=== PATIENT | female | born 1975 | race Caucasian/White ===

== ENCOUNTER 2017-06-01 12:00 | Emergency (ER) | payer OTHER ==
[~2017-06-01] VITALS: Ht 170.2 cm; Wt 65.0 kg
[2017-06-01 12:06] VITALS: BP 152/90; PULSE 69; RESP 16; TEMP 99; O2SAT 99
[2017-06-01] MEDS ORDERED: LIDOCAINE HCL 1% 30 ML VIAL INFIL ONE (12:30)
--- NOTE | 2017-06-01 12:39 | PD ---
HPI Chief Complaint: Laceration/Skin Injury Time Seen by Provider: 12:17 Travel History International Travel<30 days: No Contact w/Intl Traveler<30days: No Traveled to known affect area: No History of Present Illness HPI 42-year-old female presents to the ED for evaluation of laceration of the left great toe. Sustained just prior to arrival. Patient states that she was attempting to remove a picture from a frame when the glass fell onto her toe. She denies numbness, tingling, weakness, limitations to range of motion of the digit. She has been ambulatory since the accident. She treated at home by washing the wound and applying butterfly bandages. States last tetanus immunization was one year ago. [facility] Past Medical History Medical History: Denies Significant Hx Tetanus Vaccination: < 5 Years Influenza Vaccination: No ?: Not LMP: approx 9 months ago, had an ablasion Past Surgical History Surgical History: No Previous Surgery Social History Alcohol Use: No Tobacco Use: No Substance Use: No Allergies-Medications (Allergen,Severity, Reaction): Coded Allergies: No Known Allergies (Verified , 06/01/17) Reported Meds & Prescriptions Reported Meds & Active Scripts Active No Active Prescriptions or Reported Medications Review of Systems Except as stated in HPI: all other systems reviewed are Neg Physical Exam Narrative GENERAL: Well-nourished, well-developed white female in no acute distress.. SKIN: Focused skin assessment warm/dry. 1.75 cm laceration on the dorsal aspect of the left great toe, just distal to the MP joint. Mild active bleeding. HEAD: Normocephalic. EYES: No scleral icterus. No injection or drainage. NECK: Supple, trachea midline. No JVD or lymphadenopathy. CARDIOVASCULAR: Regular rate and rhythm without murmurs, gallops, or rubs. RESPIRATORY: Breath sounds equal bilaterally. No accessory muscle use. GASTROINTESTINAL: Abdomen soft, non-tender, nondistended. MUSCULOSKELETAL: No cyanosis, or edema. FOCUSED LEFT LOWER EXTREMITY EXAM: 2+ DP pulse. Patient retains full, active, painless flexion and extension of the toes and ankle on the right foot. Cap refill less than 2 seconds in the great toe. Sensation intact to light touch distally on the great toe. BACK: Nontender without obvious deformity. No CVA tenderness. Data Data Last Documented VS Vital Signs Date Time Temp Pulse Resp B/P (MAP) Pulse Ox O2 Delivery O2 Flow Rate FiO2 06/01/17 12:06 99.0 69 16 152/90 (110) 99 Orders Orders Lidocaine 1% Inj (50 Ml) (Xylocaine 1% I (06/01/17 12:45) Shoe Post Op (06/01/17 ) MDM Medical Decision Making Medical Screen Exam Complete: Yes Emergency Medical Condition: Yes Differential Diagnosis laceration versus tendinous injury versus open fracture versus other Narrative Course 42-year-old female presents to the ED for evaluation of laceration of the left great toe. Sustained just prior to arrival. Patient states that she was attempting to remove a picture from a frame when the glass fell onto her toe. She denies numbness, tingling, weakness, limitations to range of motion of the digit. She has been ambulatory since the accident. The tetanus immunization is up-to-date. Vitals reviewed. Physical exam reveals a 1.75 cm laceration on the dorsal aspect of the left great toe, just distal to the MP joint. The patient retains full, active, painless ROM of the great toe. Cap refill less than 2 seconds and sensation intact to light touch distally on the great toe. Laceration repair was performed. Please see my procedure note for details. Patient was placed in a postop shoe. She is instructed to have the sutures removed in 7-10 days. We discussed signs of infection and reasons to return to the ED. The patient and her indicated understanding of the instructions and are agreeable to the care plan. The patient is stable and discharged home. Procedures Procedure Narrative LACERATION LOCATION: Dorsal aspect of the left great toe LENGTH: 1.75 NUMBER OF STITCHES/TANIYA: 2 REPAIR: The area of the laceration was prepped with Betadine and sterilely draped. The laceration was infiltrated with 1% lidocaine. The wound was copiously irrigated and explored without evidence of foreign body, tendon injury or neurovascular injury. The wound was closed using 4-0 Prolene. This was a single layer repair. A sterile dressing was applied. The patient was advised to keep the dressing clean and dry. Patient tolerated the procedure well. Diagnosis Primary Impression: Laceration of left great toe without damage to nail Qualified Codes: S91.112A - Laceration without foreign body of left great toe without damage to nail, initial encounter Referrals: Primary Care Physician Patient Instructions: Care For Your Stitches (ED), General Instructions, Laceration (ED) Additional Instructions: Rest, hydrate. Elevate the foot as needed to reduce throbbing pain.. Do not change the dressing for 24 hours You may bathe normally. Do not submerge the wound. After bathing pat of wound dry. Allow the wound to air dry for 10-15 minutes. Apply a thin layer of antibiotic ointment and a clean, dry dressing. Utilize [id number] pain medications, as described on the label, as needed. Suture removal in 7-10 days. Monitor for signs of infection and return as discussed. Return to the ED for any urgent or emergent medical condition. Scripts No Active Prescriptions or Reported Meds Disposition: 01 DISCHARGE HOME Condition: Stable Arlen Crum Jun 01, 2017 12:39
[2017-06-01] MEDS ORDERED: LIDOCAINE HCL 1% 50 ML VIAL INFIL ONE (12:45)
== END 2017-06-01 13:31 | disposition home or self-care (01) ==
LOC: PHEFT 12:00
DX: S91.112A Laceration without foreign body of left great toe without damage to nail, initial encounter (principal); W20.8XXA Other cause of strike by thrown, projected or falling object, initial encounter; Y92.009 Unspecified place in unspecified non-institutional (private) residence as the place of occurrence of the external cause
CPT/HCPCS: 12001; 99282; L3260